=== PATIENT | male | born 1945 | race Asian ===

== ENCOUNTER 2019-02-04 10:22 | Emergency (ER) | payer OTHER ==
[~2019-02-04] VITALS: Ht 167.6 cm; Wt 58.1 kg
[~2019-02-04 10:22] MED LIST: ALPR0.25 PO; COR12.5 PO; MELO15TA13 PO
[2019-02-04 10:34] VITALS: BP_SYST 204
--- NOTE | 2019-02-04 10:47 | NUR ---
Patient to ER bed 8 to gown for evaluation. Side rails up. Report given to Nba TRINH.
--- NOTE | 2019-02-04 10:49 | NUR ---
Patient is awake, alert, and oriented x4. Patient is complaining of bloody sputum x1 week. He denies pain, cough, nausea, and vomiting at this time.
--- NOTE | 2019-02-04 11:10 | NUR ---
ER Dr. Monzon at bedside examining patient.
[2019-02-04 13:00] VITALS: BP_SYST 164
--- NOTE | 2019-02-04 13:00 | NUR ---
Patient given written and verbal discharge instructions and verbalizes understanding. ER MD discussed with patient the results and treatment provided. Patient in stable condition. ID arm band removed. Rx of tessalon perles, zithromax, albuterol given. Patient educated on pain management and to follow up with PMD. Pain Scale 0/10. Opportunity for questions provided and answered. Medication side effect fact sheet provided.
== END 2019-02-04 13:00 | disposition home or self-care (01) ==
LOC: SED 10:22
DX: J40 Bronchitis, not specified as acute or chronic (principal); I10 Essential (primary) hypertension; F17.290 Nicotine dependence, other tobacco product, uncomplicated; Z88.5 Allergy status to narcotic agent; Z79.899 Other long term (current) drug therapy; Z71.6 Tobacco abuse counseling
CPT/HCPCS: 71045; 99283

== ENCOUNTER 2019-02-25 21:58 | Emergency (ER) | payer OTHER ==
[~2019-02-25] VITALS: Ht 167.6 cm; Wt 58.1 kg
[2019-02-25 22:15] VITALS: BP_SYST 147
[2019-02-25] MEDS ORDERED: LEVE750T12 PO (22:46)
[2019-02-26] MEDS ORDERED: LevALBUTEROL HCL 1.25 MG/0.5 ML *CONC.* VIAL.NEB (XOPENEX CONC.) INH ONE (01:30)
[2019-02-26] MEDS ORDERED: IPRATROPIUM BROM 0.5 MG/2.5 ML VIAL.NEB (ATROVENT) INH ONE (01:30)
[2019-02-26 02:23] LABS: ANION GAP 5 (5-15); BASOPHILS # (AUTO) 0.1 K/uL (0.0-0.2); BASOPHILS % (AUTO) 0.7 % (0.0-2.0); CALCIUM 8.7 mg/dL (8.4-11.0); CHLORIDE 106 mmol/L (98-107); CREATININE 1.01 mg/dL (0.55-1.30); EOSINOPHILS # (AUTO) 0.1 K/uL (0.0-0.4); EOSINOPHILS % (AUTO) 1.9 % (0.0-4.0); GLUCOSE 94 mg/dL (70-99); HEMATOCRIT 41.9 % (36-54); HEMOGLOBIN 14.3 g/dL (14.0-18.0); LYMPHOCYTES # (AUTO) 1.9 K/uL (1.0-5.5); LYMPHOCYTES % (AUTO) 26.6 % (20.5-51.5); MEAN CORPUSCULAR HEMOGLOBIN 31 pg (27-31); MEAN CORPUSCULAR HGB CONC 34 % (32-36); MEAN CORPUSCULAR VOLUME 92 fL (79.0-98.0); MONOCYTES # (AUTO) 0.5 K/uL (0.0-1.0); MONOCYTES % (AUTO) 7.7 % (1.7-9.3); NEUTROPHILS # (AUTO) 4.5 K/uL (1.8-7.7); NEUTROPHILS % (AUTO) 63.1 % (40.0-70.0); PLATELET COUNT (AUTO) 151 K/uL (130-430); POTASSIUM 4.2 mmol/L (3.5-5.1); RED BLOOD CELL COUNT(AUTO) 4.56 MIL/uL (4.2-6.2); RED CELL DISTRIBUTION WIDTH 12.9 % (9.0-15.0); SODIUM SERUM 140 mmol/L (136-145); UREA NITROGEN, BLOOD 25 mg/dL (8-21); WHITE BLOOD COUNT (AUTO) 7.1 K/uL (4.8-10.8)
[2019-02-26 02:38] LABS: ALANINE AMINOTRANSFERASE 26 U/L (12-78); ALBUMIN 3.4 g/dL (3.4-4.8); ASPARTATE AMINOTRANSFERASE 25 U/L (10-37); TOTAL BILIRUBIN 0.7 mg/dL (0.0-1.0)
[2019-02-26] MEDS ORDERED: AMOXICILLIN 500 MG CAPSULE PO ONE (04:15)
[2019-02-26 05:13] VITALS: BP_SYST 147
== END 2019-02-26 05:13 | disposition home or self-care (01) ==
LOC: SED 21:58
DX: J20.9 Acute bronchitis, unspecified (principal); R07.9 Chest pain, unspecified; I10 Essential (primary) hypertension; Z88.5 Allergy status to narcotic agent; Z90.49 Acquired absence of other specified parts of digestive tract
CPT/HCPCS: 36415; 71045; 80053; 83880; 84484; 85025; 93005; 94640; 99284; J7612

== ENCOUNTER 2019-06-13 05:22 | Emergency (ER) | payer OTHER ==
[~2019-06-13] VITALS: Ht 167.6 cm; Wt 60.3 kg
[~2019-06-13 05:22] MED LIST changes: -ALPR0.25 PO; -COR12.5 PO; +LEVE750T12 PO; -MELO15TA13 PO
--- NOTE | 2019-06-13 05:41 | NUR ---
Patient to ER bed 4 to gown for evaluation. Side rails up.
[2019-06-13 05:42] VITALS: BP_SYST 146
[2019-06-13] MEDS ORDERED: NACL 0.9% 1,000 ML IV ONE (05:45)
[2019-06-13] MEDS ORDERED: KETOROLAC TROMETHAMINE 30 MG VIAL IVP ONE (05:45)
--- NOTE | 2019-06-13 06:00 | NUR ---
DR. WILBURN BEDSIDE FOR PT EVAL
[2019-06-13 06:08] LABS: BASOPHILS % (AUTO) 0.7 % (0.0-2.0); EOSINOPHILS # (AUTO) 0.2 K/uL (0.0-0.4); EOSINOPHILS % (AUTO) 2.6 % (0.0-4.0); HEMATOCRIT 41.8 % (36-54); LYMPHOCYTES # (AUTO) 0.8 K/uL (1.0-5.5); MEAN CORPUSCULAR HEMOGLOBIN 31 pg (27-31); MEAN CORPUSCULAR HGB CONC 34 % (32-36); MEAN CORPUSCULAR VOLUME 92 fL (79.0-98.0); MONOCYTES # (AUTO) 0.7 K/uL (0.0-1.0); MONOCYTES % (AUTO) 10.2 % (1.7-9.3); NEUTROPHILS # (AUTO) 5.3 K/uL (1.8-7.7); NEUTROPHILS % (AUTO) 75.5 % (40.0-70.0); PLATELET COUNT (AUTO) 188 K/uL (130-430); RED BLOOD CELL COUNT(AUTO) 4.55 MIL/uL (4.2-6.2); RED CELL DISTRIBUTION WIDTH 12.3 % (9.0-15.0)
--- NOTE | 2019-06-13 06:10 | NUR ---
PT BIB FAMILY TO ED C/O coughing up blood since Monday. The patient states that Monday he coughed up blood went to his primary care doctor who gave him a prescription of Augmentin. Patient state he had a sore throat but he was not short of breath. He denies traveling to any endemic coronavirus areas or being exposed to any body that has traveled to an endemic coronavirus area. He has no fevers or chills. The patient states the Augmentin made his sore throat go away but he still persists with a cough
[2019-06-13] MEDS ORDERED: PROMETHAZINE HCL/CODEINE 6.25-10 mg/5 mL UDC PO ONE (06:15)
[2019-06-13 06:25] LABS: ANION GAP 9 (5-15); CALCIUM 8.5 mg/dL (8.4-11.0); CHLORIDE 105 mmol/L (98-107); CREATININE 0.98 mg/dL (0.55-1.30); GLUCOSE 105 mg/dL (70-99); POTASSIUM 3.6 mmol/L (3.5-5.1); SODIUM SERUM 141 mmol/L (136-145); UREA NITROGEN, BLOOD 19 mg/dL (8-21)
[2019-06-13 06:30] LABS: PROTHROMBIN TIME 10.4 SECS (9.5-12.5)
[2019-06-13 06:31] LABS: ALANINE AMINOTRANSFERASE 64 U/L (12-78); ASPARTATE AMINOTRANSFERASE 48 U/L (10-37); TOTAL BILIRUBIN 1.4 mg/dL (0.0-1.0)
[2019-06-13] MEDS ORDERED: PROMETHAZINE HCL/CODEINE 6.25-10 mg/5 mL UDC ONE (06:35)
--- NOTE | 2019-06-13 07:15 | NUR ---
REPORT FROM MAYCO TRINH
--- NOTE | 2019-06-13 07:48 | NUR ---
REPORT TO DERRICK TRINH
--- NOTE | 2019-06-13 09:30 | NUR ---
PT TO CT (OFF SITE) VIA GURNEY/AMBULANCE
--- NOTE | 2019-06-13 11:15 | NUR ---
PT to ER bed [address] [facility]
[2019-06-13 11:55] VITALS: BP_SYST 146
--- NOTE | 2019-06-13 11:55 | NUR ---
Patient given written and verbal discharge instructions and verbalizes understanding. ER MD discussed with patient the results and treatment provided. Patient in stable condition. ID arm band removed. Rx of BROMFED & DOXYEYCYCLINE given. Patient educated on pain management and to follow up with PMD. Pain Scale 0/10. Opportunity for questions provided and answered. Medication side effect fact sheet provided.
== END 2019-06-13 11:55 | disposition home or self-care (01) ==
LOC: SED 05:22
DX: J18.9 Pneumonia, unspecified organism (principal); I10 Essential (primary) hypertension; Z88.6 Allergy status to analgesic agent
CPT/HCPCS: 36415; 71250-TC; 80053; 85025; 85610-TC; 85730-TC; 99284

== ENCOUNTER 2020-12-26 01:46 | Emergency (ER) | payer OTHER ==
[~2020-12-26] VITALS: Ht 167.6 cm; Wt 59.0 kg
[2020-12-26 01:48] VITALS: BP_SYST 154
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
--- NOTE | 2020-12-26 01:55 | NUR ---
Seen and examined by Dr. Harrison, medically cleared
--- NOTE | 2020-12-26 02:09 | NUR ---
Patient given written and verbal discharge instructions and verbalizes understanding. ID arm band removed. NO Rx of given. Opportunity for questions provided and answered. Medically cleared and discharged in stable condition ambulatory accompanied by information assurance officer
[2020-12-26 02:16] VITALS: BP_SYST 154
== END 2020-12-26 02:16 ==
LOC: SED 01:46
DX: Z02.89 Encounter for other administrative examinations (principal); I10 Essential (primary) hypertension; Z88.5 Allergy status to narcotic agent
CPT/HCPCS: 99283